=== PATIENT | male | born 1995 | race African-American/Black ===

== ENCOUNTER 2024-06-09 11:11 | Emergency (ER) | payer SELFPAY ==
[~2024-06-09] VITALS: Ht 172.7 cm; Wt 69.0 kg
[2024-06-09 11:15] VITALS: O2SAT 98
[2024-06-09] MEDS ORDERED: MUPI15CR11 TP (11:51)
[2024-06-09 12:01] VITALS: BP 134/77; PULSE 62; RESP 16; TEMP 36.83628; O2SAT 98
== END 2024-06-09 12:02 | disposition home or self-care (01) ==
LOC: ER 11:34
DX: L01.00 Impetigo, unspecified (principal)
CPT/HCPCS: 99282